=== PATIENT | male | born 1980 | race Caucasian/White ===

== ENCOUNTER 2016-11-16 00:15 | Emergency (ER) | payer SELFPAY ==
[~2016-11-16] VITALS: Ht 185.4 cm; Wt 93.0 kg
[~2016-11-16 00:15] MED LIST: GLIP5TAB76 PO; GLU850 PO
[2016-11-16 00:34] VITALS: BP 130/77; PULSE 75; RESP 18; TEMP 97.8; O2SAT 96
--- NOTE | 2016-11-16 00:34 | NUR ---
Patient to ER bed 8 to gown for evaluation. Side rails up.
--- NOTE | 2016-11-16 00:35 | NUR ---
PT IS AOX4, C/O BOTH FEET SORE X 1 MONTH. PAIN SCALE 10/10.
--- NOTE | 2016-11-16 00:40 | NUR ---
ER at bedside examining patient.
[2016-11-16 01:11] LABS: BASOPHILS % (AUTO) 0.6 % (0.0-2.0); EOSINOPHILS # (AUTO) 0.1 K/uL (0.0-0.4); EOSINOPHILS % (AUTO) 2.4 % (0.0-4.0); HEMATOCRIT 43.1 % (36-54); HEMOGLOBIN 14.7 g/dL (14.0-18.0); LYMPHOCYTES # (AUTO) 2.5 K/uL (1.0-5.5); LYMPHOCYTES % (AUTO) 41.5 % (20.5-51.5); MEAN CORPUSCULAR HEMOGLOBIN 29 pg (27-31); MEAN CORPUSCULAR HGB CONC 34 % (32-36); MEAN CORPUSCULAR VOLUME 84 fL (79.0-98.0); MONOCYTES # (AUTO) 0.5 K/uL (0.0-1.0); MONOCYTES % (AUTO) 8.1 % (1.7-9.3); NEUTROPHILS % (AUTO) 47.4 % (40.0-70.0); PLATELET COUNT (AUTO) 203 K/uL (130-430); RED BLOOD CELL COUNT(AUTO) 5.15 MIL/uL (4.2-6.2); RED CELL DISTRIBUTION WIDTH 11.7 % (9.0-15.0); WHITE BLOOD COUNT (AUTO) 6.1 K/uL (4.8-10.8)
[2016-11-16 01:19] LABS: CALCIUM 8.6 mg/dL (8.4-11.0); CREATININE 0.79 mg/dL (0.55-1.30); POTASSIUM 3.7 mmol/L (3.5-5.1)
[2016-11-16 01:20] LABS: TOTAL BILIRUBIN 0.4 mg/dL (0.0-1.0)
[2016-11-16 01:21] LABS: ALBUMIN 3.3 g/dL (3.4-4.8); TOTAL PROTEIN, SERUM 7.2 g/dL (6.4-8.3)
[2016-11-16] MEDS ORDERED: NACL 0.9% 1,000 ML IV ONE ×2 (01:30→02:15)
[2016-11-16] MEDS ORDERED: cefTRIAXone 2 GM VIAL ONE (01:37)
--- NOTE | 2016-11-16 02:00 | NUR ---
Pt appeared resting comfortably in bed, no sign of distress
[2016-11-16] MEDS ORDERED: INSULIN REGULAR, HUMAN 10 UNITS/0.1 ML INJ IVP ONE (02:30)
[2016-11-16 03:25] VITALS: BP 124/76; PULSE 78; RESP 18; TEMP 97.8; O2SAT 99
--- NOTE | 2016-11-16 03:25 | NUR ---
Patient given written and verbal discharge instructions and verbalizes understanding. ER MD Thomas discussed with patient the results and treatment provided. Patient in stable condition. ID arm band removed. IV catheter removed intact and dressing applied, no active bleeding. Rx of tylenol with codeine, keflex given. Patient educated on pain management and to follow up with PMD. Pain Scale 0/10. Opportunity for questions provided and answered.
[2016-11-16 03:43] LABS: BILIRUBIN,URINE NEGATIVE (NEGATIVE); BLOOD, URINE NEGATIVE (NEGATIVE); CLARITY/URINE CLEAR (CLEAR); COLOR,URINE YELLOW (YELLOW); GLUCOSE,URINE 3+ (NEGATIVE); KETONES,URINE 1+ (NEGATIVE); LEUKOCYTE ESTERASE ,URINE NEGATIVE (NEGATIVE); NITRITE, URINE NEGATIVE (NEGATIVE); PH,URINE 5.5 (5.0-8.0); PROTEIN URINE NEGATIVE (NEGATIVE); UROBILINOGEN,URINE 0.2 (0.2-1.0)
[2016-11-16 03:57] LABS: BACTERIA,URINE RARE /HPF (None Seen); MUCUS,URINE None Seen /LPF (None Seen); RBC,URINE 0-3 /HPF (0-3); WBC,URINE 0-3 /HPF (0-3)
== END 2016-11-16 03:25 | disposition home or self-care (01) ==
LOC: SED 00:15
DX: M79.89 Other specified soft tissue disorders (principal)
CPT/HCPCS: 36415; 80053; 81000; 83605; 85025; 87040; 96365; 96375; 99284; J0696; J7030; J7060